=== PATIENT | male | born 1960 | race Caucasian/White ===

== ENCOUNTER → 2018-01-02 | Day surgery (SDC) | payer OTHER ==
[~2018-01-02] MED LIST: MIDAZOLAM 1 MG/ML 2 ML INJ; PROPOFOL 20 ML
== END | disposition home or self-care (01) ==
LOC: GIL 11:16
DX: Z12.11 Encounter for screening for malignant neoplasm of colon (principal); K64.8 Other hemorrhoids
CPT/HCPCS: 45378